=== PATIENT | female | born 1990 | race African-American/Black ===

== ENCOUNTER 2016-11-02 21:33 | Emergency (ER) | payer OTHER ==
[2016-11-02] MEDS ORDERED: MORPHINE SULFATE 10 MG/ML INJ IV ONE (21:58)
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
[2016-11-02 23:43] VITALS: BP 139/82
== END 2016-11-02 23:41 | disposition home or self-care (01) ==
LOC: ER 21:33
DX: T23.262A Burn of second degree of back of left hand, initial encounter (principal); S80.01XA Contusion of right knee, initial encounter; M25.561 Pain in right knee; V89.2XXA Person injured in unspecified motor-vehicle accident, traffic, initial encounter
CPT/HCPCS: 99283; 96374; 71010; 73564; 73130; J2270

== ENCOUNTER 2017-12-23 11:36 | Emergency (ER) | payer SELFPAY ==
[2017-12-23 12:02] VITALS: BP 132/82
--- NOTE | 2017-12-23 14:03 | ER Document Report ---
ED Medical Screen (RME) - General Chief Complaint: Abdominal Swelling Stated Complaint: SWOLLEN ABDOMEN Time Seen by Provider: 12/23/17 13:56 Notes: Patient is complaining of pain and swelling of her perineum and buttocks. The pain began a couple weeks ago and swelling has been going on for about the past week. She has never had this before. Not running any fever. LMP early October. On no control. TRAVEL OUTSIDE OF THE [place] IN LAST 30 DAYS: No - Related Data Allergies/Adverse Reactions: No Known Allergies Allergy (Verified 12/23/17 11:40) Past Medical History - Social History Chew tobacco use (# tins/day): No Frequency of alcohol use: Occasional Drug Abuse: None Renal/ Medical History: Denies: Hx Peritoneal Dialysis Past Surgical History: Reports: Hx Oral Surgery - Immunizations Hx Diphtheria, Pertussis, Tetanus Vaccination: No Physical Exam - Vital signs Vitals: Temp Pulse Resp BP Pulse Ox 97.8 F 69 16 132/82 H 100 12/23/17 12:00 12/23/17 12:00 12/23/17 12:00 12/23/17 12:00 12/23/17 12:00 Course - Vital Signs Vital signs: Temp Pulse Resp BP Pulse Ox 97.8 F 69 16 132/82 H 100 12/23/17 12:00 12/23/17 12:00 12/23/17 12:00 12/23/17 12:00 12/23/17 12:00
[2017-12-23 14:42] LABS: ABSOLUTE EOSINOPHILS # (AUTO) 0.3 10^3/uL (0.0-0.6); ABSOLUTE LYMPHOCYTES (AUTO) 3.1 10^3/uL (0.5-4.7); ABSOLUTE MONOCYTES (AUTO) 0.6 10^3/uL (0.1-1.4); ABSOLUTE NEUT (AUTO) 3.7 10^3/uL (1.7-8.2); BASOPHILS % (AUTO) 0.2 % (0-2); EOSINOPHILS % (AUTO) 3.3 % (0-6); HEMATOCRIT 41.3 % (36.0-47.0); HEMOGLOBIN 13.8 g/dL (12.0-15.5); LYMPHOCYTES % (AUTO) 40.5 % (13-45); MEAN CORPUSCULAR HGB CONC 33.4 g/dL (32.0-36.0); MEAN CORPUSCULAR VOLUME 84 fl (80-97); MONOCYTES % (AUTO) 8.2 % (3-13); PLATELET COUNT 426 10^3/uL (150-450); RED BLOOD COUNT 4.93 10^6/uL (3.72-5.28); RED CELL DISTRIBUTION WIDTH 13.8 % (11.5-14.0); SEGMENTED NEUTROPHILS % (AUTO) 47.8 % (42-78); TOTAL CELLS COUNTED % (AUTO) 100 %; WHITE BLOOD COUNT 7.8 10^3/uL (4.0-10.5)
[2017-12-23 15:07] LABS: ALANINE AMINOTRANSFERASE 32 U/L (9-52); ALBUMIN 4.3 g/dL (3.5-5.0); ALKALINE PHOSPHATASE 68 U/L (38-126); ANION GAP 12 (5-19); ASPARTATE AMINO TRANSFERASE 17 U/L (14-36); BILIRUBIN,DIRECT 0.3 mg/dL (0.0-0.4); BILIRUBIN,TOTAL 0.7 mg/dL (0.2-1.3); BLOOD UREA NITROGEN 14 mg/dL (7-20); CARBON DIOXIDE 27 mmol/L (22-30); CHLORIDE 101 mmol/L (98-107); GLUCOSE 114 mg/dL (75-110); POTASSIUM 4.3 mmol/L (3.6-5.0); SODIUM 139.5 mmol/L (137-145); TOTAL PROTEIN 7.7 g/dL (6.3-8.2)
--- NOTE | 2017-12-23 15:16 | ER Document Report ---
ED GI/ - General Chief Complaint: Abdominal Swelling Stated Complaint: SWOLLEN ABDOMEN Time Seen by Provider: 12/23/17 13:56 Mode of Arrival: Ambulatory Information source: Patient Notes: Patient is a 27-year-old morbidly obese female comes emergency room with a complaint of "rectal swelling". Patient states it started approximately 2 weeks ago and it feels like something is hanging there. Patient denies any nausea vomiting or diarrhea she just states that the pain feels like a fullness. TRAVEL OUTSIDE OF THE [place] IN LAST 30 DAYS: No - HPI Patient complains to provider of: Other - Rectal discomfort. No: Abdominal pain Onset: Other - 2 weeks ago Timing/Duration: Gradual Quality of pain: Fullness, Pressure Severity at maximum: Moderate Severity in ED: Moderate Pain Level: 3 Location: Rectal Vaginal bleeding (Compared to normal period): None Menstrual period history: Abnormal OB ultrasound done: No vitamins taken: No Sexual history: Active Associated symptoms: None Exacerbated by: Walking Relieved by: Denies Similar symptoms previously: No Recently seen / treated by doctor: No - Related Data Allergies/Adverse Reactions: No Known Allergies Allergy (Verified 12/23/17 11:40) Past Medical History - General Information source: Patient - Social History Smoking Status: Never Smoker Cigarette use (# per day): No Chew tobacco use (# tins/day): No Smoking Education Provided: No Frequency of alcohol use: None Drug Abuse: None Family History: None, Reviewed & Not Pertinent Patient has suicidal ideation: No Patient has homicidal ideation: No Renal/ Medical History: Denies: Hx Peritoneal Dialysis Past Surgical History: Reports: Hx Oral Surgery - Immunizations Hx Diphtheria, Pertussis, Tetanus Vaccination: No Review of Systems - Review of Systems Constitutional: No symptoms reported EENT: No symptoms reported Cardiovascular: No symptoms reported Respiratory: No symptoms reported Gastrointestinal: No symptoms reported, Other - Rectal discomfort Genitourinary: No symptoms reported Female Genitourinary: No symptoms reported Musculoskeletal: No symptoms reported Skin: No symptoms reported Hematologic/Lymphatic: No symptoms reported Neurological/Psychological: No symptoms reported -: Yes All other systems reviewed and negative Physical Exam - Vital signs Vitals: Temp Pulse Resp BP Pulse Ox 97.8 F 69 16 132/82 H 100 12/23/17 12:00 12/23/17 12:00 12/23/17 12:00 12/23/17 12:00 12/23/17 12:00 Interpretation: Hypertensive - General General appearance: Appears well, Alert - Respiratory Respiratory status: No respiratory distress Chest status: Nontender. No: Pain on movement, Accessory muscle use, Prolonged expirations Breath sounds: Normal. No: Rales, Rhonchi, Stridor, Wheezing Chest palpation: Normal - Cardiovascular Rhythm: Regular Heart sounds: Normal auscultation Murmur: No - Abdominal Inspection: Morbidly Obese Distension: No distension Bowel sounds: Normal Tenderness: Tender, Other - Rectal area Organomegaly: No organomegaly - Rectal Tenderness: Yes Stool: Other - Physical exam shows the patient has a small tag-like hemorrhoid at about the 6 o'clock position 1 patient is laying prone. Is tender to palpate but is not engorged. It appears irritated or has some erythema associated with it.. No: Heme negative, Heme positive Hemorrhoids: External - Genitourinary External exam: Normal Speculum exam: Normal Vaginal bleeding: Mild Bimanuel exam: Normal - Neurological Neuro grossly intact: Yes Cognition: Normal Orientation: AAOx4 Cecile Coma Scale Eye Opening: Spontaneous Cecile Coma Scale Verbal: Oriented [place] Coma Scale Motor: Obeys Commands [place] Coma Scale Total: 15 Course - Re-evaluation Re-evalutation: 12/23/17 15:19 On physical examination patient stated that her abdomen is not a problem. She feels like there is something swollen between her legs in her rectal area. Laying down and physical examination of the area shows there to be a small skin tag-like hemorrhoid at the 6 o'clock position of the anus. It appears irritated and the fact that it looks apparent that patient will leave it alone. There is no other surrounding erythema or fluctuance felt. There is no change in temperature of the skin from one side to the other. The area of concern is this 1 alone external hemorrhoid. - Vital Signs Vital signs: Temp Pulse Resp BP Pulse Ox 97.8 F 69 16 132/82 H 100 12/23/17 12:00 12/23/17 12:00 12/23/17 12:00 12/23/17 12:00 12/23/17 12:00 - Laboratory Result Diagrams: 12/23/17 14:12 12/23/17 14:12 Laboratory results interpreted by me: 12/23/17 14:12 Glucose 114 H Discharge - Discharge Clinical Impression: Hemorrhoidal skin tag Hemorrhoid Qualifiers: Hemorrhoid type: first degree Qualified Code(s): K64.0 - First degree hemorrhoids Disposition: HOME, SELF-CARE Instructions: Hemorrhoids ([facility]) Additional Instructions: Home and use cream as we have directed you. As we discussed this may be 1 of those types of hemorrhoids that may not go away and may need to be cut out. As long as it is not bothering you severely I suggest leaving it alone and just dry and apply the cream. If it continues to bother you you will probably need seeing a surgeon to have them excised it. She have any concerns or problems return to ER for recheck. Prescriptions: Hydrocortisone [Anusol-Hc] 30 gm RC TID #1 cream.gm.
== END 2017-12-23 15:55 | disposition home or self-care (01) ==
LOC: ER 11:36
DX: K64.4 Residual hemorrhoidal skin tags (principal); K64.0 First degree hemorrhoids; E66.01 Morbid (severe) obesity due to excess calories; Z68.42 Body mass index [BMI] 45.0-49.9, adult
CPT/HCPCS: 36415; 80053; 84703; 85025; 99284